=== PATIENT | female | born 1960 | race Caucasian/White ===

== ENCOUNTER 2024-10-06 18:54 | Emergency (ER) | payer SELFPAY ==
[~2024-10-06] VITALS: Ht 172.7 cm; Wt 68.0 kg
[2024-10-06 19:09] VITALS: O2SAT 98
[2024-10-06 20:13] LABS: BASOPHILS % 0.5 % (0.0-2.0); EOSINOPHILS % 1.4 % (0.0-5.0); HEMATOCRIT. 43.4 % (36.0-48.0); HEMOGLOBIN. 15.2 g/dL (12.0-16.0); LYMPHOCYTES % 23.9 % (20.0-50.0); MEAN CORPUSCULAR HEMOGLOBIN 29.9 pg (28.0-32.0); MEAN CORPUSCULAR VOLUME 85.5 fL (81.0-99.0); MEAN PLATELET VOLUME 9.3 fl (7.4-10.4); MONOCYTES % 6.8 % (2.0-8.0); NEUTROPHILS % 67.4 % (40.0-76.0); PLATELET 183 x1000/uL (130-400); RED BLOOD CELL COUNT 5.07 mill/uL (4.2-5.4); RED CELL DISTRIBUTION WIDTH 14.8 % (11.6-14.6)
[2024-10-06 20:19] LABS: CHLORIDE 107 mEq/L (98-107); POTASSIUM 4.6 mEq/L (3.5-5.1); SODIUM 143 mEq/L (136-145)
[2024-10-06 20:20] LABS: CARBON DIOXIDE 32 mEq/L (21-32)
[2024-10-06 20:21] LABS: CALCIUM 8.4 mg/dL (8.7-10.4)
[2024-10-06 20:25] LABS: CREATININE 0.7 mg/dL (0.6-1.0); GLUCOSE 124 mg/dL (70-105)
[2024-10-06 20:26] LABS: UREA NITROGEN BLOOD 19 mg/dL (9-23)
[2024-10-07 01:33] VITALS: BP 172/88; PULSE 66; RESP 18; TEMP 36.7; O2SAT 100
== END 2024-10-07 01:38 | disposition home or self-care (01) ==
LOC: ER 18:54
DX: R60.0 Localized edema (principal)
CPT/HCPCS: 99284; 80048; 85025; 36415; 93005; C1893

== ENCOUNTER 2025-01-27 19:23 | Inpatient (IN) | payer SELFPAY ==
[~2025-01-27] VITALS: Ht 172.7 cm; Wt 62.6 kg
[2025-01-27 20:28] LABS: BASOPHILS % 0.8 % (0.0-2.0); EOSINOPHILS % 1.3 % (0.0-5.0); HEMATOCRIT. 43.7 % (36.0-48.0); HEMOGLOBIN. 15.2 g/dL (12.0-16.0); LYMPHOCYTES % 28.9 % (20.0-50.0); MEAN CORPUSCULAR HEMOGLOBIN 29.5 pg (28.0-32.0); MEAN CORPUSCULAR HGB CONC 34.8 g/dL (31.0-37.0); MEAN PLATELET VOLUME 10.1 fl (7.4-10.4); PLATELET 179 x1000/uL (130-400); RED BLOOD CELL COUNT 5.15 mill/uL (4.2-5.4); RED CELL DISTRIBUTION WIDTH 13.7 % (11.6-14.6); WHITE BLOOD COUNT 10.1 x1000/uL (4.5-11.0)
[2025-01-27 20:35] LABS: CARBON DIOXIDE 29 mEq/L (21-32)
[2025-01-27 20:36] LABS: CALCIUM 8.7 mg/dL (8.7-10.4); CHLORIDE 109 mEq/L (98-107); INR 0.9; POTASSIUM 3.7 mEq/L (3.5-5.1); SODIUM 143 mEq/L (136-145)
[2025-01-27 20:41] LABS: GLUCOSE 177 mg/dL (70-105); UREA NITROGEN BLOOD 41 mg/dL (9-23)
[2025-01-27 20:45] LABS: TROPONIN I HIGH SENSITIVITY 4 ng/L (3.0-34)
[2025-01-27 20:49] LABS: CREATININE 1.4 mg/dL (0.6-1.0)
[2025-01-27] MEDS: ACETAMINOPHEN 325MG TABLET PO ONE (22:27)
[2025-01-27] MEDS: CLOPIDOGREL 75MG TABLET PO ONE (23:27)
[2025-01-27] MEDS: ASPIRIN 325MG EC TABLET PO ONE (23:28)
[2025-01-28 00:07] LABS: TROPONIN I HIGH SENSITIVITY 4 ng/L (3.0-34)
[2025-01-28] MEDS ORDERED: IPRATROPIUM/ALBUTEROL 0.5-3(2.5)MG/3ML NEB NEB PRN (02:00)
[2025-01-28 02:27] LABS: CLARITY URINE CLEAR (CLEAR); COLOR URINE YELLOW (YELLOW); GLUCOSE URINE TRACE (NEGATIVE); KETONES URINE NEGATIVE (NEGATIVE); LEUKOCYTE ESTERASE URINE NEGATIVE (NEGATIVE); NITRITE URINE NEGATIVE (NEGATIVE); OCCULT BLOOD URINE 2+ (NEGATIVE); PROTEIN URINE 4+ (NEGATIVE)
[2025-01-28 02:47] LABS: *AMPHETAMINES SCREEN URINE NEGATIVE (NEGATIVE); *BARBITURATES SCREEN URINE NEGATIVE (NEGATIVE); *BENZODIAZEPINES SCREEN URINE NEGATIVE (NEGATIVE); *COCAINE SCREEN URINE NEGATIVE (NEGATIVE); METHADONE URINE SCREEN NEGATIVE (NEGATIVE); OPIATES URINE SCREEN NEGATIVE (NEGATIVE)
[2025-01-28 02:48] LABS: CANNABINOID URINE SCREEN NEGATIVE (NEGATIVE); ECSTASY MDMA SCREEN URINE NEGATIVE (NEGATIVE); PHENCYCLIDINE URINE SCREEN NEGATIVE (NEGATIVE)
[2025-01-28] MEDS: NICARDIPINE 40MG/200ML PREMIX 200 ML IV PRN (03:22)
[2025-01-28] MEDS ORDERED: MAGNESIUM/ALUMINUM HYDROXIDE/SIMETHICONE 30ML UDC PO PRN (04:15)
[2025-01-28] MEDS ORDERED: GUAIFENESIN 200MG/10ML SUGAR FREE UDC PO PRN (04:15)
[2025-01-28] MEDS ORDERED: DOCUSATE SODIUM 250MG CAPSULE PO PRN (04:15)
[2025-01-28] MEDS ORDERED: DEXTROSE 50% WATER 50ML SYRINGE IV PRN ×2 (04:15→16:45)
[2025-01-28] MEDS: LACTATED RINGERS 1,000 ML IV ONE (05:10)
[2025-01-28 05:57] LABS: SQUAMOUS EPITHELIAL CELL URINE FEW /lpf (RARE/1+)
[2025-01-28 05:58] LABS: WBC URINE 0-2 /hpf (0-2)
[2025-01-28 05:59] LABS: BACTERIA URINE NONE SEEN
[2025-01-28] MEDS ORDERED: HYDRALAZINE 20MG/ML VIAL IV SCH (06:00)
[2025-01-28] MEDS: BLOOD SUGAR DIAGNOSTIC STRIP TEST SCH ×2 (08:05→16:59)
[2025-01-28 08:21] VITALS: BP 190/85; PULSE 80; RESP 18; TEMP 36.4; O2SAT 97
[2025-01-28 08:45] VITALS: BP 190/85; PULSE 80; RESP 18; TEMP 36.5
[2025-01-28 09:00] VITALS: BP 190/85; PULSE 80; RESP 18; TEMP 36.4; O2SAT 97
[2025-01-28] MEDS: PANTOPRAZOLE SODIUM 40 MG/VIAL IV SCH (09:29)
[2025-01-28] MEDS: AMLODIPINE 10MG TABLET PO SCH (09:30)
[2025-01-28] MEDS: HYDRALAZINE 20MG/ML VIAL IV PRN (09:30)
[2025-01-28 11:11] LABS: CREATINE KINASE MB FRACTION 1.5 ng/mL (0.5-3.6)
[2025-01-28] MEDS ORDERED: IOHEXOL-350 100 ML BOTTLE ONE (12:03)
[2025-01-28 16:35] VITALS: BP 154/74; PULSE 88; RESP 18; TEMP 36.7; O2SAT 98
[2025-01-28] MEDS: ISOSORBIDE MONONITRATE 60MG TABLET SR 24HR PO SCH (16:59)
[2025-01-28] MEDS: INSULIN LISPRO 100 UNITS/ML SUBCUT SCH (17:12)
[2025-01-28 17:15] LABS: CREATINE KINASE MB FRACTION 1.4 ng/mL (0.5-3.6)
[2025-01-28 19:41] VITALS: BP 155/76; PULSE 89; RESP 18; TEMP 36.2; O2SAT 89
[2025-01-28] MEDS: ATORVASTATIN CALCIUM 40MG TABLET PO SCH (22:04)
[2025-01-29] VITALS (7 sets, daily range): BP systolic 137–175; BP diastolic 72–86; PULSE 88–99; RESP 18–20; TEMP 36.1–37.1; O2SAT 95–97
[2025-01-29] MEDS: ACETAMINOPHEN 650MG/20.3ML UDC PO PRN (00:03)
[2025-01-29 06:45] LABS: POTASSIUM 3.7 mEq/L (3.5-5.1)
[2025-01-29 06:46] LABS: CALCIUM 7.5 mg/dL (8.7-10.4)
[2025-01-29 06:51] LABS: CREATININE 1.2 mg/dL (0.6-1.0)
[2025-01-29 06:55] LABS: BASOPHILS % 0.3 % (0.0-2.0); EOSINOPHILS % 1.3 % (0.0-5.0); HEMATOCRIT. 34.6 % (36.0-48.0); HEMOGLOBIN. 11.9 g/dL (12.0-16.0); LYMPHOCYTES % 18.1 % (20.0-50.0); MEAN CORPUSCULAR HGB CONC 34.5 g/dL (31.0-37.0); MEAN CORPUSCULAR VOLUME 84.2 fL (81.0-99.0); MEAN PLATELET VOLUME 9.7 fl (7.4-10.4); NEUTROPHILS % 73.3 % (40.0-76.0); PLATELET 147 x1000/uL (130-400); RED BLOOD CELL COUNT 4.11 mill/uL (4.2-5.4); RED CELL DISTRIBUTION WIDTH 13.6 % (11.6-14.6); WHITE BLOOD COUNT 12.1 x1000/uL (4.5-11.0)
[2025-01-29] MEDS: CLOPIDOGREL 75MG TABLET PO SCH (08:28)
[2025-01-29] MEDS: ISOSORBIDE MONONITRATE 30MG TABLET SR 24HR PO SCH (08:29)
[2025-01-29] MEDS: ASPIRIN 81MG TABLET PO SCH (08:53)
[2025-01-29] MEDS ORDERED: LIP40 PO (15:00)
[2025-01-29] MEDS ORDERED: PANT40SU PO (15:00)
[2025-01-29] MEDS ORDERED: ASPI-1160 PO (15:00)
[2025-01-29] MEDS ORDERED: CLOP-31 PO (15:00)
[2025-01-29] MEDS ORDERED: ISOS30TA91 PO (15:00)
[2025-01-29] MEDS ORDERED: AMLO10TA80 PO (15:00)
[2025-01-29] MEDS ORDERED: CLON0.1T PO (15:41)
== END 2025-01-29 18:35 | disposition home or self-care (01) | DRG 199 ==
LOC: ER 19:23 → 7WST 01-28 00:57 → CMPBEDREQ 01-28 01:02 → EDBEDREQ 01-28 03:10 → ENRESERV 01-28 06:37
PROVIDERS: ADMIT Internal Medicine; ATTEND Internal Medicine
PROC: 02HV33Z Insertion of Infusion Device into Superior Vena Cava, Percutaneous Approach (ICD-10-PCS; principal; 2025-01-28)
PROC: B5181ZA Fluoroscopy of Superior Vena Cava using Low Osmolar Contrast, Guidance (ICD-10-PCS; 2025-01-28)
PROC: B548ZZA Ultrasonography of Superior Vena Cava, Guidance (ICD-10-PCS; 2025-01-28)
DX: I16.1 Hypertensive emergency (principal); N17.9 Acute kidney failure, unspecified; E11.65 Type 2 diabetes mellitus with hyperglycemia; E86.0 Dehydration; F17.210 Nicotine dependence, cigarettes, uncomplicated; I10 Essential (primary) hypertension; Z86.73 Personal history of transient ischemic attack (TIA), and cerebral infarction without residual deficits; Z85.821 Personal history of Merkel cell carcinoma; Z88.0 Allergy status to penicillin
CPT/HCPCS: 36415; 36573; 70496; 70498; 71045; 73502; 80048; 80061; 80305; 81003; 82553; 82962; 83036; 84484; 85025; 93005; 93306; 97162; 97165; 99285; C1725; J0360; J1815; J2470; Q9967